=== PATIENT | female | born 1970 | race Caucasian/White ===

== ENCOUNTER 2024-08-31 08:28 | Day surgery (SDC) | payer OTHER ==
[~2024-08-31] VITALS: Ht 167.6 cm; Wt 104.0 kg
[~2024-08-31 08:28] MED LIST: Lactated Ringer's 1,000 ML IV ONE; Lidocaine HCl 4% 5 ML SDA ONE; propofoL 50 ML IV ONE
[2024-08-31] MEDS ORDERED: ONDA4ODT (08:48)
[2024-08-31] MEDS ORDERED: RIZATRIPTAN10 MG (08:48)
[2024-08-31] MEDS ORDERED: NAPR500 (08:48)
[2024-08-31] MEDS ORDERED: SERT50 (08:49)
[2024-08-31] MEDS ORDERED: TOPI50 (08:49)
[2024-08-31] MEDS ORDERED: LEVSOD100 (08:49)
[2024-08-31] MEDS ORDERED: CIME400 (08:49)
[2024-08-31] MEDS ORDERED: LORA10ER (08:50)
[2024-08-31] MEDS ORDERED: EPIPEN 2-P0.3 MG/0.1 (08:50)
[2024-08-31] MEDS ORDERED: Dexmedetomidine HCL 200 MCG / 2 ML ONE (08:57)
[2024-08-31] MEDS ORDERED: Lactated Ringer's 1,000 ML IV ONE (09:08)
[2024-08-31] MEDS ORDERED: propofoL 50 ML IV ONE (09:35)
--- NOTE | 2024-08-31 09:38 | NUR ---
08/31/24 0938 Jason Singh 56 AND 60 ALSO USED FOR DILITATION
== END 2024-08-31 10:17 | disposition home or self-care (01) ==
LOC: ORSCSDS 08:28
DX: R13.10 Dysphagia, unspecified (principal); K21.9 Gastro-esophageal reflux disease without esophagitis; K31.89 Other diseases of stomach and duodenum; G47.33 Obstructive sleep apnea (adult) (pediatric); E66.9 Obesity, unspecified; Z68.37 Body mass index [BMI] 37.0-37.9, adult; Z79.899 Other long term (current) drug therapy
CPT/HCPCS: 88305; 88342; C1769; J2003; J2704; J7120

== ENCOUNTER → 2024-09-28 | Outpatient (CLI) | payer OTHER ==
[~2024-09-28] MED LIST changes: +CIME400; +EPIPEN 2-P0.3 MG/0.1; +LEVSOD100; +LORA10ER; -Lactated Ringer's 1,000 ML IV ONE; -Lidocaine HCl 4% 5 ML SDA ONE; +NAPR500; +ONDA4ODT; +RIZATRIPTAN10 MG; +SERT50; +TOPI50; -propofoL 50 ML IV ONE
[2024-09-29 14:50] LABS: Stool Occult Bld Immuno 1 Negative (NEGATIVE)
== END | disposition home or self-care (01) ==
LOC: LAB 21:55 → LAB SHORT 21:55
PROVIDERS: Family Medicine
DX: Z12.11 Encounter for screening for malignant neoplasm of colon (principal)
CPT/HCPCS: G0328